=== PATIENT | female | born 1940 | race Caucasian/White ===

== ENCOUNTER → 2016-11-03 | Outpatient (CLI) | payer MEDICARE ==
[~2016-11-03] MED LIST: ALBU0.086 INH; BENZ100 PO; CELE100 PO; MEDR4PAK3 PO; MISC1TAB9 PO; NEBUKIT4; PRIL20TA2 PO; ROSU5 PO; SPIRCAP INH; TAB-TAB PO; TUSSSUS PO; VITA100O PO; ZOFR4TAB3 SL
--- NOTE | 2016-11-12 09:41 | RSPPFT ---
DATE OF PROCEDURE: 11/03/16 COMMENTS: Spirometry demonstrates an FEV1 of 1.3 at 78% of predicted, FVC of 2.2 at 99%, FEF 25-75 at 42%. The FEV1/FVC ratio is 61. Post-bronchodilator study demonstrated no significant change. Lung volumes are unremarkable. Diffusion capacity is moderately reduced. Flow volume loops suggest an obstructive defect. IMPRESSION: 1. Mild obstructive airways disease. 2. No significant change following use of bronchodilator. 3. Moderate reduction in diffusion capacity.
== END ==
LOC: PHRSP 09:20
PROVIDERS: ATTEND Family Medicine
DX: J44.9 Chronic obstructive pulmonary disease, unspecified (principal)
CPT/HCPCS: 94060; 94726; 94729